=== PATIENT | female | born 1975 | race Caucasian/White ===

== ENCOUNTER 2018-04-29 10:40 | Emergency (ER) | payer OTHER ==
[~2018-04-29] VITALS: Ht 162.6 cm; Wt 68.0 kg
== END 2018-04-29 16:00 | disposition home or self-care (01) ==
LOC: ER 10:40 → CPU-OBS 11:03 → ER 11:03
DX: R07.89 Other chest pain (principal)
CPT/HCPCS: G0378; G0379; 93005